=== PATIENT | male | born 1995 | race Caucasian/White ===

== ENCOUNTER 2019-09-05 04:40 | Emergency (ER) | payer OTHER, SELFPAY ==
[2019-09-05 04:44] VITALS: BP 167/92; PULSE 92; RESP 20; TEMP 36.7; O2SAT 100
--- NOTE | 2019-09-05 04:51 | DI.CT_ITS ---
EXAM: CT CHEST W CLINICAL HISTORY: Hematemesis, hx of Boerhaave's, r/o esophageal rup TECHNIQUE: Imaging Protocol: Axial computed tomography images with coronal and sagittal reformatted images were created and reviewed CONTRAST MATERIAL: Intravenous: Omnipaque 350 Contrast volume:70 mL contrast route:IV - COMPARISON: No exams were available for comparison FINDINGS: Tracheobronchial tree: Patent where visualized. Mediastinum and Bette: No dominant adenopathy or fluid collection. No pneumomediastinum. The esophagu s is intact. Pulmonary parenchyma: No consolidation or dominant measurable mass. No architectural distortion. Pleura: No effusion or pneumothorax. Heart: The heart is not dilated. No coronary artery calcifications are seen. Aorta: Thoracic aorta non-dilated. Upper abdomen: Unremarkable. Lymph nodes: Within normal limits. Bones: Normal. IMPRESSION: Normal CT of the thorax. DATA REPOSITORY: All CT scans at this facility are submitted to the National Radiology Data Registry (NRDR) Dose Index Registry (DIR) with the [employer] ([employer]). RADIATION OPTIMIZATION: All CT scans at this facility use at least one of these dose optimization te chniques: automated exposure control; mA and/or kV adjustment per patient size (includes targeted exa ms where dose is matched to clinical indication); or iterative reconstruction.
--- NOTE | 2019-09-05 04:51 | ED.GENADUL_ITS ---
Discharge Plan Disposition Patient Disposition: HOME Condition: Good Discharge Details Chief Complaint: GenMedical Clinical Impression: Nausea and vomiting Primary Care Provider: Usha,Local ED Provider: Darryl Matute Home Meds and New Rx's Prescriptions: New ondansetron HCl [Zofran] 4 mg tablet 4 mg PO Q8H Qty: 7 RF: 0 Discharge Instructions Instructions: Acute Nausea and Vomiting (ED) Additional Instructions: At this time there is no evidence of esophageal rupture per our radiologist. Please avoid any spicy foods, tomato-based products or citrus-based products. Please take the Zofran as needed. Please use Maalox as needed to help settle your stomach if it does become nauseous or upset again. Please drink 10 to 12 cups of water per day. If you notice any worsening of your symptoms, or any new symptoms such as vomiting, diarrhea, fever, chills, shortness of breath, chest pain, numbness, weakness, or fainting , please return immediately to the emergency department for reevaluation. Please follow up with your primary care provider as soon as possible for reassessment and reevaluation. As always, it was a pleasure participating in your medical care today. Medical Decision Making This is a 24-year-old male with a past medical history of a Boerhaave's tear when he was a young child who presented who evaluated small amounts of blood in his vomit. Patient strengths that earlier today he was drinking alcohol, doing some coke, subsequently had 10-12 episodes of vomiting that the and had small amounts of blood noted in it. He states that this was similar and concerning for his Boerhaave's when he was a child. He admits to mild burning sensation in his throat at this time but denies any other comp laints. He states very clearly and specifically that he is here only to get a CAT scan to make sure I did not rupture my esophagus. Physical exam is notably unremarkable, no evidence of subcutaneous crepitus. Respecting the patient's wishes, after discussing the risks and benefits of radiation exposure we will get a CT scan for further assessment, gently rehydrate, give Zofran and GI cocktail. 5:45 AM Patient's laboratory work-up is returned notably unremarkable, no white count, bandemia, or other abnormality. Lactate is 1.6, not overly elevated. No significant electrolyte disturbance. Anion gap is slightly elevated at 1.9 which reflects his vomiting and mild dehydration. He was given a liter fluid Zofran GI cocktail is feeling much better. He is tolerated p.o. CT scan shows no evidence of acute process, esophageal rupture, or other abnormality per virtual radiology. This time I feel the patient is appropriate for safe discharge home. Signs and symptoms clinically consistent with a mild gastritis likely secondary to alcohol intake and worsened by cocaine use. Recommend continued fluids, Zofran as needed. I have extensively reviewed the treatment plan and discharge instructions with the patient. I have addressed all patient concerns at this time. The patient was made aware of what symptoms to monitor for that would warrant a return to the emergency department. Discussed the plan with the patient, they demonstrate verbal understanding and agreement with our assessment and plan at this time. Also of note with the patient's mild fatty liver, I did discuss with him the importance of decreasing his regular alcohol intake. He states that he only drinks on the weekends but does drink a significant amount during the weekends. FINDINGS: Lungs: Unremarkable. No consolidation. No masses. Central airways patent Pleural space: Unremarkable. No pneumothorax. No pleural effusion. Heart: Unremarkable. No cardiomegaly. No pericardial effusion. No pneumopericardium. Mediastinum: Esophagus appears intact. No pneumomediastinum. Aorta: Unremarkable. No aortic aneurysm. Lymph nodes: Unremarkable. No enlarged lymph nodes. Liver: There is diffuse decrease in hepatic parenchymal density, consistent with mild fatty infiltration. There is a small region of focal, more pronounced fatty infiltration in the liver adjacent to the falciform ligament. Bones/joints: Unremarkable. No acute fracture. Soft tissues: Symmetric gynecomastia. IMPRESSION: 1. No acute findings. 2. Hepatic steatosis. Thank you for allowing us to participate in the care of your patient. Dictated and Authenticated by: Tal Matthews DO 09/05/2019 5:42 AM Eastern Time ([place] & [place]) HPI General Date/Time Provider Initiated Documentation: 09/05/19 04:42 . HPI Narrative: 24-year-old male with a past medical history of Boerhaave's tear when he was a child presents today for vomiting with a small amount of hematemesis. Patient states that he drank some alcohol, did some coke, and subsequently had some vomiting today, he has had 10-12 episodes of vomiting and retching. He noticed a small amount of blood in the vomit at the end. This concerned him with his previous episodes of Boerhaave's as a child. He presents to the ER for further evaluation. Currently he denies any significant chest pain. He does admit to mild reflux-like sensation in his throat. He denies any difficulty breathing, sore throat, or shortness of breath. Patient states very clearly that Doctor, the only reason I am here is because I want a CAT scan to make sure I did not rupture my esophagus. Patient has no other complaints at this time. No other modifying factors. Related Data Home Medications Medication Instructions Recorded Confirmed ondansetron HCl [Zofran] 4 mg PO Q8H #7 tab 09/05/19 Previous Rx's Medication Instructions Recorded ondansetron HCl [Zofran] 4 mg PO Q8H #7 tab 09/05/19 Allergies Allergy/AdvReac Type Severity Reaction Status Date / Time No Known Allergies Allergy Unverified 09/05/19 04:51 General Stated Complaint: GenMedical BOZENA: 3 Review of Systems All systems reviewed & are unremarkable except as noted in HPI and below PFSH Social History Smoking/Tobacco Use Status: Never Alcohol Intake: current Alcohol Intake frequency: a few times a week Substance use type: crack/cocaine Do you feel safe at home: Yes Do you feel safe in your relationship?: Yes Exam Narrative Exam Narrative: 1.Const: Well-nourished, Well-developed, appearing stated age 2.Eyes: PERRL, no conjunctival injection, and symmetrical lids. 3.ENT: Atraumatic external nose and ears. Moist MM. Neck: Symmetric, trachea midline, No thyromegaly. 4.CVS: +S1/S2, No murmurs or gallops. Peripheral pulses 2+ and equal in all extremities. Brisk capillary refill in all extremities. No evidence of Jany's crunch, no paratracheal emphysema. No neck crepitus. 5.RESP: Unlabored respiratory effort. Clear to auscultation bilaterally. No wheezes rales or rhonchi 6.GI: Soft, Nontender/Nondistended, No hepatosplenomegaly. No guarding or rebound. No significant epigastric pain or tenderness. 7.MSK: Normocephalic/Atraumatic, Extremities w/o deformity or ttp No cyanosis or clubbing, Normal movement of all extremities 8.Skin: Warm, Dry. No rashes or lesions. 9.Neuro: event mgr II-XII grossly intact. Sensation grossly intact, no focal neurologic deficits. 10.Psych: (AAO) x3. Appropriate mood and affect Course Vital Signs Vital signs: Vital Signs Temperature 36.7 C 09/05/19 04:44 Pulse 92 H 09/05/19 04:44 Respiratory Rate 09/05/19 04:44 Blood Pressure 167/92 H 09/05/19 04:44 Pulse Oximetry 100 09/05/19 04:44 Temperature 36.7 C 09/05/19 04:44 Temperature Source Skin 09/05/19 04:44 Pulse 92 H 09/05/19 04:44 Respiratory Rate 20 09/05/19 04:44 Respiratory Effort 09/05/19 04:48 Blood Pressure 167/92 H 09/05/19 04:44 Pulse Oximetry 100 09/05/19 04:44 Oxygen Delivery Method Room Air 09/05/19 04:44 Oxygen Flow Rate 0 09/05/19 04:44 Pain Level 0 09/05/19 04:44
[2019-09-05] MEDS: Normal Saline 1,000 ML 1000 ML IV (04:57)
[2019-09-05] MEDS: Ondansetron 4 MG/2 ML VIAL IVP (04:59)
[2019-09-05 05:01] LABS: Lactate 1.6 mmol/L (0.6-1.4)
[2019-09-05 05:03] LABS: Abs Immature Grans 0.02 k/cumm (0.0-0.09); Absolute Basophil Count 0.02 k/cumm (0.0-0.2); Absolute Eosinophil Count 0.05 k/cumm (0.0-0.7); Absolute Lymphocyte Count 1.96 k/cumm (1.2-3.4); Absolute Monocyte Count 0.79 k/cumm (0.11-0.7); Absolute Neutrophil Count 6.71 k/cumm (1.2-6.7); Basophils % 0.2; Eosinophils % 0.5; HCT 46.9 % (40.0-50.0); HGB 16.1 g/dL (13.5-17.5); Immature Grans % 0.2 %; Lymphocytes % 20.5; Mean Corp. HGB Concentration 34.3 g/dL (32.0-36.0); Mean Corpuscular Hemoglobin 31.3 pg (27.0-33.0); Mean Corpuscular Volume 91.1 fL (80-95); Mean Platelet Volume 9.3 fL (8.0-11.0); Monocytes % 8.3; Neutrophils % 70.3; Platelet Count 385 x1000/uL (130-400); RBC 5.15 m/cumm (4.50-6.00); RBC Distribution Width 12.7 % (11.8-14.1); White Blood Cell Count 9.55 k/cumm (4.4-10.8)
[2019-09-05] MEDS: Omnipaque 350 MG/ML 100 ML BTL IJ (05:20)
[2019-09-05 05:24] LABS: ALT 51 U/L (16-63); AST 31 U/L (15-37); Albumin 4.3 g/dL (3.4-5.0); Alkaline Phosphatase 68 U/L (46-116); Anion Gap 12.9 mmol/L (3-11); BUN 10 mg/dL (7-18); Bilirubin, Total 0.3 mg/dL (0.2-1.0); CO2 28.1 mmol/L (21.0-32.0); CREATININE 0.91 mg/dL (0.70-1.30); Calcium 8.7 mg/dL (8.5-10.1); Chloride 102 mmol/L (98-107); Glucose 110 mg/dL (74-106); Potassium 3.5 mmol/L (3.5-5.1); Sodium 143 mmol/L (136-145)
--- NOTE | 2019-09-05 05:40 | DI.VRAD_ITS ---
PROCEDURE INFORMATION: Exam: CT Chest With Contrast Exam date and time: 09/05/2019 4:51 AM Age: 24 years old Clinical indication: Other: Hematemesis; Additional info: HX of boerhaave's; R/O esophageal rup TECHNIQUE: Imaging protocol: Computed tomography of the chest with intravenous contrast. COMPARISON: No relevant prior studies available. FINDINGS: Lungs: Unremarkable. No consolidation. No masses. Central airways patent Pleural space: Unremarkable. No pneumothorax. No pleural effusion. Heart: Unremarkable. No cardiomegaly. No pericardial effusion. No pneumopericardium. Mediastinum: Esophagus appears intact. No pneumomediastinum. Aorta: Unremarkable. No aortic aneurysm. Lymph nodes: Unremarkable. No enlarged lymph nodes. Liver: There is diffuse decrease in hepatic parenchymal density, consistent with mild fatty infiltration. There is a small region of focal, more pronounced fatty infiltration in the liver adjacent to the falciform ligament. Bones/joints: Unremarkable. No acute fracture. Soft tissues: Symmetric gynecomastia. IMPRESSION: 1. No acute findings. 2. Hepatic steatosis. Dictated and Authenticated by: Tal Matthews MD. Ordering:SHAMIKA Andrews MD
[2019-09-05 05:50] VITALS: BP 134/71; PULSE 82; RESP 16; O2SAT 99
== END 2019-09-05 05:45 | disposition home or self-care (01) ==
PROVIDERS: Emergency Provider Student in an Organized Health Care Education/Training Program
DX: R11.2 Nausea with vomiting, unspecified (principal); E86.0 Dehydration; K29.00 Acute gastritis without bleeding; F10.10 Alcohol abuse, uncomplicated; F14.10 Cocaine abuse, uncomplicated
CPT/HCPCS: 36415; 80053; 96361; 96374; 99285; 71260; 83605; 85025; 99284; J2405; J3490